=== PATIENT | male | born 1995 | race Caucasian/White ===

== ENCOUNTER 2022-10-03 16:54 | Inpatient (IN) | payer OTHER ==
[2022-10-03 17:36] VITALS: BMI 34.0
[2022-10-03] MEDS ORDERED: METHOCARBAMOL 500 MG TABLET PO PRN (20:36)
[2022-10-03] MEDS ORDERED: MAGNESIUM HYDROX 2400MG/30ML ORAL SUSPENSION 30 ML CUP PO PRN (20:36)
[2022-10-03] MEDS ORDERED: IBUPROFEN 600 MG TABLET (FP) PO PRN (20:36)
[2022-10-03] MEDS ORDERED: guaiFENesin 600 MG TABLET.ER (FP) PO PRN (20:36)
[2022-10-03] MEDS ORDERED: NALOXONE HCL (KLOXXADO) 8 MG SPRAY NS PRN (20:36)
[2022-10-03] MEDS ORDERED: DICYCLOMINE HCL 10 MG CAPSULE PO PRN (20:36)
[2022-10-03] MEDS ORDERED: ONDANSETRON *ODT* 4 MG TABLET SL PRN (20:36)
[2022-10-03] MEDS ORDERED: P-EPHED 60MG/TRIPROLIDI 2.5MG TABLET PO PRN (20:36)
[2022-10-03] MEDS ORDERED: LOPERAMIDE HCL 2 MG CAPSULE PO PRN (20:36)
[2022-10-03] MEDS ORDERED: IBUPROFEN 400 MG TABLET (FP) PO PRN (20:36)
[2022-10-03] MEDS ORDERED: MELATONIN 5 MG TABLETS PO PRN (20:36)
[2022-10-03] MEDS ORDERED: NICOTINE 10 MG CARTRIDGE (INHALER) IH PRN (20:36)
[2022-10-03] MEDS ORDERED: BENZONATATE 200 MG CAPSULE PO PRN (20:36)
[2022-10-03] MEDS ORDERED: hydrOXYzine PAMOATE 25 MG CAPSULE (FP) PO PRN (20:36)
[2022-10-03] MEDS ORDERED: POLYETHYLENE GLYCOL (HEALTHYLAX) 3350 17 GM PACKET PO PRN (20:36)
[2022-10-03] MEDS ORDERED: BISMUTH SUBSALICYLATE 524 MG/30 ML PO PRN (20:36)
[2022-10-03] MEDS ORDERED: ACETAMINOPHEN 325 MG TABLET (FP) PO PRN (20:36)
[2022-10-03] MEDS ORDERED: MAG HYDROX/AL HYDROX/SIMETH 30 ML UNIT-DOSE CUP PO PRN (20:36)
[2022-10-03] MEDS ORDERED: NALOXONE HCL 0.4 MG/ML VIAL IM PRN (20:36)
[2022-10-03] MEDS ORDERED: BENZOCAINE/MENTHOL (CHLORASEPTIC ) LOZENGE MM PRN (20:36)
[2022-10-03] MEDS ORDERED: diazePAM 5 MG TABLET PO PRN (20:38)
[2022-10-03] MEDS ORDERED: THIAMINE HCL 100 MG TABLET (FP) PO SCH (22:00)
[2022-10-03] MEDS ORDERED: diazePAM 5 MG TABLET PO SCH (23:00)
[2022-10-04 09:45] VITALS: BP 121/60; PULSE 65; RESP 19; TEMP 97.3
[2022-10-04] MEDS ORDERED: PRENATAL VITAMINS W/ FOLIC ACID TABLET (FP) PO SCH (10:00)
[2022-10-04 11:27] LABS: HEMATOCRIT 45.8 % (35.4-49); HEMOGLOBIN 15.2 GM/dL (11.7-16.9); MCH 28.9 pg (25.7-33.7); MCHC 33.2 g/dl (32.0-35.9); MEAN CELL VOLUME 87.2 fl (80-96); MEAN PLT VOLUME 9.5 fl (7.5-11.1); PLATELET COUNT 257 10^3/uL (134-434); RBC 5.26 M/mm3 (4.00-5.60); RDW 14.1 % (11.9-15.9); WHITE BLOOD COUNT 6.7 K/mm3 (4.0-10.0)
[2022-10-04 13:38] LABS: POTASSIUM 4.3 mmol/L (3.5-5.1)
[2022-10-04 13:44] LABS: BLOOD UREA NITROGEN 13.3 mg/dL (7-18)
[2022-10-04 13:47] LABS: CREATININE 0.9 mg/dL (0.55-1.3)
[2022-10-04 13:49] LABS: BILIRUBIN,TOTAL 1.1 mg/dL (0.2-1); TOT PROT 7.5 g/dl (6.4-8.2)
[2022-10-04 14:10] LABS: HIV INTERPRETATION NEGATIVE (NEGATIVE)
[2022-10-05] MEDS ORDERED: diazePAM 5 MG TABLET PO SCH (06:00)
[2022-10-06] MEDS ORDERED: diazePAM 5 MG TABLET PO SCH (06:00)
[2022-10-07] MEDS ORDERED: diazePAM 5 MG TABLET PO ONE (06:00)
== END 2022-10-04 12:30 | disposition other institution (70) | DRG 774 ==
LOC: YASAS 16:54 → Y6N 10-04 00:06
PROVIDERS: ADMIT Allergy & Immunology; ATTEND Surgery
PROC: HZ2ZZZZ Detoxification Services for Substance Abuse Treatment (ICD-10-PCS; principal; 2022-10-04)
DX: F14.20 Cocaine dependence, uncomplicated (principal); F10.20 Alcohol dependence, uncomplicated; F12.20 Cannabis dependence, uncomplicated; F17.290 Nicotine dependence, other tobacco product, uncomplicated; Z86.16 Personal history of COVID-19
CPT/HCPCS: 36415; 80053; 85027; 86780; 87389; 87635

== ENCOUNTER 2022-10-04 12:31 | Inpatient (IN) | payer OTHER ==
[2022-10-04] MEDS ORDERED: NALOXONE HCL 0.4 MG/ML VIAL IVPUSH PRN (12:57)
[2022-10-04] MEDS ORDERED: POLYETHYLENE GLYCOL (HEALTHYLAX) 3350 17 GM PACKET PO PRN (12:57)
[2022-10-04] MEDS ORDERED: NICOTINE 14 MG/24 HOURS TOPICAL PATCH TD PRN (12:57)
[2022-10-04] MEDS ORDERED: NICOTINE 10 MG CARTRIDGE (INHALER) IH PRN (12:57)
[2022-10-04] MEDS ORDERED: IBUPROFEN 400 MG TABLET (FP) PO PRN (12:57)
[2022-10-04] MEDS ORDERED: LOPERAMIDE HCL 2 MG CAPSULE PO PRN (12:57)
[2022-10-04] MEDS ORDERED: MAG HYDROX/AL HYDROX/SIMETH 30 ML UNIT-DOSE CUP PO PRN (12:57)
[2022-10-04] MEDS ORDERED: AMMONIUM LACTATE 12% LOTION 225 GM BOTTLE TP PRN (12:57)
[2022-10-04] MEDS ORDERED: MAGNESIUM HYDROX 2400MG/30ML ORAL SUSPENSION 30 ML CUP PO PRN (12:57)
[2022-10-04] MEDS ORDERED: BENZOCAINE/MENTHOL (CHLORASEPTIC ) LOZENGE MM PRN (12:57)
[2022-10-04] MEDS ORDERED: BENZONATATE 200 MG CAPSULE PO PRN (12:57)
[2022-10-04] MEDS ORDERED: NALOXONE HCL (KLOXXADO) 8 MG SPRAY NS PRN (12:57)
[2022-10-04] MEDS ORDERED: METHOCARBAMOL 500 MG TABLET PO PRN (12:57)
[2022-10-04] MEDS ORDERED: ACETAMINOPHEN 325 MG TABLET (FP) PO PRN (12:57)
[2022-10-04] MEDS ORDERED: guaiFENesin 600 MG TABLET.ER (FP) PO PRN (12:57)
[2022-10-04] MEDS: IBUPROFEN 600 MG TABLET (FP) PO PRN (18:59)
[2022-10-04] MEDS: MELATONIN 5 MG TABLETS PO SCH (21:19)
[2022-10-04] MEDS: THIAMINE HCL 100 MG TABLET (FP) PO SCH (21:19)
[2022-10-05] MEDS: PRENATAL VITAMINS W/ FOLIC ACID TABLET (FP) PO SCH (10:18)
[2022-10-05] MEDS ORDERED: BISMUTH SUBSALICYLATE 262 MG/15 ML BTL PO PRN (15:16)
[2022-10-05] MEDS ORDERED: DICYCLOMINE HCL 10 MG CAPSULE PO PRN (15:22)
[2022-10-05] MEDS: BACLOFEN 10 MG TABLET (FP) PO SCH ×2 (15:50→21:16)
[2022-10-05] MEDS: MAG HYDROX/AL HYDROX/SIMETH -MYLANTA- ORAL SUSPENSION PO SCH (17:52)
[2022-10-05] MEDS: THIAMINE HCL 100 MG TABLET (FP) PO SCH (21:17)
[2022-10-05] MEDS: MELATONIN 5 MG TABLETS PO SCH (21:17)
[2022-10-06] MEDS: MAG HYDROX/AL HYDROX/SIMETH -MYLANTA- ORAL SUSPENSION PO SCH ×4 (00:43→17:17)
[2022-10-06] MEDS: BACLOFEN 10 MG TABLET (FP) PO SCH ×3 (06:29→21:11)
[2022-10-06] MEDS: PRENATAL VITAMINS W/ FOLIC ACID TABLET (FP) PO SCH (10:08)
[2022-10-06] MEDS: THIAMINE HCL 100 MG TABLET (FP) PO SCH (21:11)
[2022-10-06] MEDS: MELATONIN 5 MG TABLETS PO SCH (21:11)
[2022-10-07] MEDS: MAG HYDROX/AL HYDROX/SIMETH -MYLANTA- ORAL SUSPENSION PO SCH ×5 (02:06→23:09)
[2022-10-07] MEDS: BACLOFEN 10 MG TABLET (FP) PO SCH ×3 (06:01→21:14)
[2022-10-07] MEDS: PRENATAL VITAMINS W/ FOLIC ACID TABLET (FP) PO SCH (09:49)
[2022-10-07] MEDS: THIAMINE HCL 100 MG TABLET (FP) PO SCH (21:14)
[2022-10-07] MEDS: MELATONIN 5 MG TABLETS PO SCH (21:14)
[2022-10-07] MEDS: hydrOXYzine PAMOATE 25 MG CAPSULE (FP) PO PRN (23:37)
[2022-10-08] MEDS: BACLOFEN 10 MG TABLET (FP) PO SCH ×3 (06:38→21:08)
[2022-10-08] MEDS: MAG HYDROX/AL HYDROX/SIMETH -MYLANTA- ORAL SUSPENSION PO SCH ×4 (06:38→23:04)
[2022-10-08] MEDS: COLLOIDAL OATMEAL 1 BAR EACH TP PRN (06:39)
[2022-10-08 07:45] VITALS: RESP 18
[2022-10-08] MEDS: PRENATAL VITAMINS W/ FOLIC ACID TABLET (FP) PO SCH (10:06)
[2022-10-08] MEDS: IBUPROFEN 600 MG TABLET (FP) PO PRN (11:42)
[2022-10-08] MEDS: THIAMINE HCL 100 MG TABLET (FP) PO SCH (21:08)
[2022-10-08] MEDS: MELATONIN 5 MG TABLETS PO SCH (21:08)
[2022-10-09] MEDS: MAG HYDROX/AL HYDROX/SIMETH -MYLANTA- ORAL SUSPENSION PO SCH ×3 (06:22→17:10)
[2022-10-09] MEDS: BACLOFEN 10 MG TABLET (FP) PO SCH ×3 (06:22→21:14)
[2022-10-09] MEDS: PRENATAL VITAMINS W/ FOLIC ACID TABLET (FP) PO SCH (10:16)
[2022-10-09] MEDS: MELATONIN 5 MG TABLETS PO SCH (21:14)
[2022-10-09] MEDS: THIAMINE HCL 100 MG TABLET (FP) PO SCH (21:14)
[2022-10-10] MEDS: MAG HYDROX/AL HYDROX/SIMETH -MYLANTA- ORAL SUSPENSION PO SCH ×4 (01:09→17:01)
[2022-10-10] MEDS: BACLOFEN 10 MG TABLET (FP) PO SCH ×3 (06:07→21:04)
[2022-10-10] MEDS: PRENATAL VITAMINS W/ FOLIC ACID TABLET (FP) PO SCH (09:55)
[2022-10-10] MEDS: THIAMINE HCL 100 MG TABLET (FP) PO SCH (21:04)
[2022-10-10] MEDS: MELATONIN 5 MG TABLETS PO SCH (21:04)
[2022-10-11] MEDS: MAG HYDROX/AL HYDROX/SIMETH -MYLANTA- ORAL SUSPENSION PO SCH ×4 (00:50→17:32)
[2022-10-11] MEDS: BACLOFEN 10 MG TABLET (FP) PO SCH ×3 (06:35→21:28)
[2022-10-11] MEDS: PRENATAL VITAMINS W/ FOLIC ACID TABLET (FP) PO SCH (09:48)
[2022-10-11] MEDS: IBUPROFEN 600 MG TABLET (FP) PO PRN (11:01)
[2022-10-11] MEDS: THIAMINE HCL 100 MG TABLET (FP) PO SCH (21:28)
[2022-10-11] MEDS: MELATONIN 5 MG TABLETS PO SCH (21:28)
[2022-10-12] MEDS: MAG HYDROX/AL HYDROX/SIMETH -MYLANTA- ORAL SUSPENSION PO SCH ×4 (00:42→18:06)
[2022-10-12] MEDS: BACLOFEN 10 MG TABLET (FP) PO SCH ×3 (05:58→21:10)
[2022-10-12] MEDS: COLLOIDAL OATMEAL 1 BAR EACH TP PRN (06:07)
[2022-10-12] MEDS: PRENATAL VITAMINS W/ FOLIC ACID TABLET (FP) PO SCH (10:26)
[2022-10-12] MEDS: THIAMINE HCL 100 MG TABLET (FP) PO SCH (21:10)
[2022-10-12] MEDS: MELATONIN 5 MG TABLETS PO SCH (21:10)
[2022-10-13] MEDS: MAG HYDROX/AL HYDROX/SIMETH -MYLANTA- ORAL SUSPENSION PO SCH ×5 (00:33→23:51)
[2022-10-13] MEDS: BACLOFEN 10 MG TABLET (FP) PO SCH ×3 (06:03→21:42)
[2022-10-13] MEDS: IBUPROFEN 600 MG TABLET (FP) PO PRN (06:44)
[2022-10-13] MEDS: PRENATAL VITAMINS W/ FOLIC ACID TABLET (FP) PO SCH (10:45)
[2022-10-13] MEDS: LACTULOSE 20 GM/30 ML UDC (FOR ORAL USE ONLY) PO SCH ×2 (13:00→21:41)
[2022-10-13] MEDS: THIAMINE HCL 100 MG TABLET (FP) PO SCH (21:41)
[2022-10-13] MEDS: MELATONIN 5 MG TABLETS PO SCH (21:41)
[2022-10-14] MEDS: BACLOFEN 10 MG TABLET (FP) PO SCH ×3 (05:43→21:46)
[2022-10-14] MEDS: LACTULOSE 20 GM/30 ML UDC (FOR ORAL USE ONLY) PO SCH ×3 (05:43→21:46)
[2022-10-14] MEDS: MAG HYDROX/AL HYDROX/SIMETH -MYLANTA- ORAL SUSPENSION PO SCH ×3 (07:02→17:57)
[2022-10-14] MEDS: PRENATAL VITAMINS W/ FOLIC ACID TABLET (FP) PO SCH (09:20)
[2022-10-14] MEDS: MELATONIN 5 MG TABLETS PO SCH (21:46)
[2022-10-14] MEDS: THIAMINE HCL 100 MG TABLET (FP) PO SCH (21:46)
[2022-10-14] MEDS: hydrOXYzine PAMOATE 25 MG CAPSULE (FP) PO PRN (21:47)
[2022-10-15] MEDS: MAG HYDROX/AL HYDROX/SIMETH -MYLANTA- ORAL SUSPENSION PO SCH ×4 (00:01→17:07)
[2022-10-15] MEDS: BACLOFEN 10 MG TABLET (FP) PO SCH ×3 (05:34→21:21)
[2022-10-15] MEDS: LACTULOSE 20 GM/30 ML UDC (FOR ORAL USE ONLY) PO SCH ×3 (05:34→21:22)
[2022-10-15] MEDS: COLLOIDAL OATMEAL 1 BAR EACH TP PRN (06:07)
[2022-10-15] MEDS: PRENATAL VITAMINS W/ FOLIC ACID TABLET (FP) PO SCH (10:18)
[2022-10-15] MEDS: THIAMINE HCL 100 MG TABLET (FP) PO SCH (21:20)
[2022-10-15] MEDS: hydrOXYzine PAMOATE 25 MG CAPSULE (FP) PO PRN (21:20)
[2022-10-15] MEDS: MELATONIN 5 MG TABLETS PO SCH (21:21)
[2022-10-16] MEDS: MAG HYDROX/AL HYDROX/SIMETH -MYLANTA- ORAL SUSPENSION PO SCH ×5 (00:08→23:46)
[2022-10-16] MEDS: LACTULOSE 20 GM/30 ML UDC (FOR ORAL USE ONLY) PO SCH ×3 (06:27→21:12)
[2022-10-16] MEDS: BACLOFEN 10 MG TABLET (FP) PO SCH ×3 (06:27→21:11)
[2022-10-16] MEDS: PRENATAL VITAMINS W/ FOLIC ACID TABLET (FP) PO SCH (09:31)
[2022-10-16] MEDS: THIAMINE HCL 100 MG TABLET (FP) PO SCH (21:11)
[2022-10-16] MEDS: MELATONIN 5 MG TABLETS PO SCH (21:12)
[2022-10-16] MEDS: hydrOXYzine PAMOATE 25 MG CAPSULE (FP) PO PRN (21:33)
[2022-10-17] MEDS: LACTULOSE 20 GM/30 ML UDC (FOR ORAL USE ONLY) PO SCH ×3 (06:06→21:01)
[2022-10-17] MEDS: BACLOFEN 10 MG TABLET (FP) PO SCH ×3 (06:07→21:01)
[2022-10-17] MEDS: MAG HYDROX/AL HYDROX/SIMETH -MYLANTA- ORAL SUSPENSION PO SCH ×3 (06:07→17:02)
[2022-10-17 06:29] VITALS: TEMP 97.7
[2022-10-17] MEDS: PRENATAL VITAMINS W/ FOLIC ACID TABLET (FP) PO SCH (10:19)
[2022-10-17 12:11] LABS: ALBUMIN 4.2 g/dl (3.4-5.0); CALCIUM 9.6 mg/dL (8.5-10.1)
[2022-10-17 12:13] LABS: CREATININE 0.9 mg/dL (0.55-1.3)
[2022-10-17 12:15] LABS: BILIRUBIN,TOTAL 0.4 mg/dL (0.2-1); TOT PROT 7.6 g/dl (6.4-8.2)
[2022-10-17] MEDS ORDERED: METHYL SALICYLATE/MENTHOL OINT 30 GM TUBE TP PRN (16:18)
[2022-10-17] MEDS: IBUPROFEN 600 MG TABLET (FP) PO PRN (18:50)
[2022-10-17] MEDS: THIAMINE HCL 100 MG TABLET (FP) PO SCH (21:01)
[2022-10-17] MEDS: MELATONIN 5 MG TABLETS PO SCH (21:01)
[2022-10-17] MEDS: hydrOXYzine PAMOATE 25 MG CAPSULE (FP) PO PRN (21:02)
[2022-10-17] MEDS ORDERED: RIFAXIMIN 550 MG TABLET PO SCH (22:00)
[2022-10-18] MEDS: MAG HYDROX/AL HYDROX/SIMETH -MYLANTA- ORAL SUSPENSION PO SCH ×2 (01:03→06:17)
[2022-10-18] MEDS: LACTULOSE 20 GM/30 ML UDC (FOR ORAL USE ONLY) PO SCH (06:17)
[2022-10-18] MEDS: BACLOFEN 10 MG TABLET (FP) PO SCH (06:18)
[2022-10-18 07:03] VITALS: BP 128/72; PULSE 65
== END 2022-10-18 09:11 | disposition home or self-care (01) | DRG 774 ==
LOC: YASAS 12:31 → Y3W 12:32
PROVIDERS: ADMIT Allergy & Immunology; ATTEND Psychiatry & Neurology Pain Medicine
PROC: HZ2ZZZZ Detoxification Services for Substance Abuse Treatment (ICD-10-PCS; principal; 2022-10-04)
DX: F10.20 Alcohol dependence, uncomplicated (principal); F14.20 Cocaine dependence, uncomplicated; F12.20 Cannabis dependence, uncomplicated; F17.290 Nicotine dependence, other tobacco product, uncomplicated; M25.519 Pain in unspecified shoulder; R74.01 Elevation of levels of liver transaminase levels; R79.89 Other specified abnormal findings of blood chemistry
CPT/HCPCS: 36415; 80053; 82140; 86803; J0475